=== PATIENT | female | born 1995 | race African-American/Black ===

== ENCOUNTER 2023-08-11 16:22 | Emergency (ER) | payer MEDICAID, OTHER ==
[~2023-08-11] VITALS: Ht 157.5 cm; Wt 74.5 kg
[~2023-08-11 16:22] MED LIST: INSU100C3 SQ; INSU100C4 SQ; LISI-892 PO
[2023-08-11 16:30] VITALS: TEMP 98.5
[2023-08-11 18:05] VITALS: BP 125/71; PULSE 99; RESP 17
== END 2023-08-11 18:44 | disposition home or self-care (01) ==
LOC: EMS 16:22
DX: M25.511 Pain in right shoulder (principal); E11.9 Type 2 diabetes mellitus without complications; I10 Essential (primary) hypertension; Z88.0 Allergy status to penicillin
CPT/HCPCS: 82962; 99284